=== PATIENT | female | born 1945 | race American Indian/Alaskan Native ===

== ENCOUNTER 2017-03-07 11:05 | Outpatient (CLI) | payer MEDICARE ==
--- NOTE | 2017-03-07 13:13 | XRay Report ---
Lumbar spine series: Arthritis, pain. Degenerative spondylosis is present throughout the lumbar levels with severe narrowing of all of the interspace levels. There is normal alignment and the vertebral height is generally maintained at each level. The bones are generally demineralized. The apophyseal joints appear generally preserved. Impressions: Diffuse spondylosis, narrowed disc spaces, and osteopenia/osteoporosis.
--- NOTE | 2017-03-07 13:14 | XRay Report ---
Bilateral shoulders: Osteoarthritis. Routine views of the shoulder demonstrate normal bony contours and good preservation of the articular margins and joint spaces. The bones appear generally well mineralized. No soft tissue change is identified. Impression: Normal exam bilaterally.
== END 2017-03-07 11:06 | disposition home or self-care (01) ==
LOC: XRAY 11:05
PROVIDERS: ATTEND Internal Medicine
DX: M15.0 Primary generalized (osteo)arthritis (principal); M47.896 Other spondylosis, lumbar region; I10 Essential (primary) hypertension; F17.200 Nicotine dependence, unspecified, uncomplicated
CPT/HCPCS: 72110